=== PATIENT | male | born 1960 | race Caucasian/White ===

== ENCOUNTER 2023-02-11 11:12 | Outpatient (CLI) | payer MEDICARE, SELFPAY | END 2023-02-11 11:13 | disposition home or self-care (01) | PROVIDERS: PCP Family Medicine; Visit Provider Family Medicine | DX: E78.5 Hyperlipidemia, unspecified (principal); I10 Essential (primary) hypertension; N52.9 Male erectile dysfunction, unspecified | CPT/HCPCS: 80048; 80061; 84403; 84460 ==

== ENCOUNTER 2024-02-03 08:44 | Outpatient (CLI) | payer MEDICARE, SELFPAY | END 2024-02-03 08:45 | disposition home or self-care (01) | PROVIDERS: PCP Family Medicine; Visit Provider Family Medicine | DX: I10 Essential (primary) hypertension (principal); D55.9 Anemia due to enzyme disorder, unspecified; E78.2 Mixed hyperlipidemia | CPT/HCPCS: 80048; 80061; 82306; 84460 ==

== ENCOUNTER 2024-02-09 14:00 | Outpatient (CLI) | payer MEDICARE, SELFPAY ==
--- NOTE | 2024-02-09 14:00 | CT_ITS ---
Patient: ELIZABETH NUNES Facility:?[facility] Patient ID:?[id number] Site Patient ID:?[id number]. Site :?1960 Study:?CT-Chest LUNG SCREENING-02/09/2024 2:32:30 PM Ordering Physician:AUSTIN Final Report: INDICATION: Lung cancer screening. History of smoking. High risk patient with greater than 20 pack-year smoking history. TECHNIQUE: Low-dose lung cancer screening non-contrast CT chest. Dose reduction techniques were used. COMPARISON: None. FINDINGS: NODULES: At least 1.9 cm spiculated partially cavitary perihilar nodule in the right upper lobe image 55 series 3. This abuts the bronchovascular structures in the superior hilum. Cluster of nodules adjacent to a 1 cm cystic lesion images 75 through 79. Largest nodule measures 5.6 mm. LUNGS AND PLEURA: Bronchial wall thickening on the right. Impaction of a few right lower lobe bronchi. MEDIASTINUM: Right hilar adenopathy. Subcarinal lymph node measuring 1.1 cm in short axis diameter. CORONARY ARTERY CALCIFICATION: Present LIMITED UPPER ABDOMEN: Present MUSCULOSKELETAL: Normal. IMPRESSION: 1. Highly suspicious right perihilar nodule measuring at least 1.9 cm. Right hilar and subcarinal adenopathy. Recommend IV contrast-enhanced diagnostic chest CT to better delineate the relationship between the nodule and the bronchovascular structures. 2. 1 cm cystic lesion with adjacent cluster of nodules. LUNG-RADS CATEGORY 4X highly suspicious. Chest CT with or without contrast, PET/CT and/or tissue sampling depending on the probability of malignancy and comorbidities. PET/CT maybe used when there is a greater than or equal to 8 mm solid component. For new large nodules that develop on an annual repeat screening CT, a 1 month low-dose CT chest may be considered to address potentially infectious or inflammatory conditions.? Please note that all CT scans at this facility use dose modulation, iterative reconstruction, and/or weight-based dosing when appropriate to reduce radiation dose to as low as reasonably achievable. Dictated by Gus Cook MD @ 02/10/2024 10:36:44 AM Signed by:?Gus Cook MD @02/10/2024 10:36:44 AM (Electronic Signature
== END 2024-02-09 14:01 | disposition home or self-care (01) ==
LOC: CT 14:01
PROVIDERS: PCP Family Medicine; Visit Provider Family Medicine
DX: F17.210 Nicotine dependence, cigarettes, uncomplicated (principal)
CPT/HCPCS: 71271

== ENCOUNTER 2024-02-19 13:32 | Outpatient (CLI) | payer MEDICARE, SELFPAY ==
--- NOTE | 2024-02-19 14:00 | CT_ITS ---
Patient: ELIZABETH NUNES Facility:?[facility] Patient ID:?[id number] Site Patient ID:?[id number]. Site :?1960 Study:?CT-Chest W/ 75CC ISOVUE 370-02/19/2024 2:12:22 PM Ordering Physician:AUSTIN Final Report: INDICATION: Abnormal finding from lung cancer screening.. TECHNIQUE: CT chest was acquired with 75 cc Isovue 370 IV contrast. COMPARISON: Lung cancer screening January 2024. FINDINGS: Lungs and Airways: Persistent right upper lobe nodular opacity measuring up to 2.7 cm previously measuring up to 2.7 cm remeasured. This causes obscuration of a branch of the right upper bronchus. Stable additional right upper lobe 6 millimeter indeterminate pulmonary nodule. No new suspicious pulmonary nodules. No central endoluminal lesion. Left upper lobe lung cyst. Heart and Mediastinum: Right hilar lymph node measuring up to 2.2 cm. No axillary or supraclavicular lymphadenopathy. Visualized portions of the thyroid are normal. Normal heart size. Normal caliber aorta. Atherosclerotic calcifications. Pleura: The pleural spaces are normal. Abdomen: Gallbladder sludge. Bones and soft tissues: Old right-sided rib fractures. IMPRESSION: 1. Persistent right upper lobe nodular opacity measuring up to 2.7 cm previously measuring up to 2.7 cm, (remeasured). This causes obscuration of a branch of the right upper bronchus. Recommend further evaluation with dedicated PET-CT versus potential tissue sampling. 2. Stable additional right upper lobe 6 millimeter indeterminate pulmonary nodule. 3. Enlarged right hilar lymph node measuring 2.2 cm. Please note that all CT scans at this facility use dose modulation, iterative reconstruction, and/or weight-based dosing when appropriate to reduce radiation dose to as low as reasonably achievable. Dictated by Anderson Mendoza MD @ 02/20/2024 10:12:05 AM Signed by:?Anderson Mendoza MD @02/20/2024 10:12:05 AM (Electronic Signature)
== END 2024-02-19 13:33 | disposition home or self-care (01) ==
LOC: CT 13:33
PROVIDERS: PCP Family Medicine; Visit Provider Family Medicine
DX: R91.8 Other nonspecific abnormal finding of lung field (principal); R59.0 Localized enlarged lymph nodes
CPT/HCPCS: 71260; Q9967